=== PATIENT | female | born 1985 | race American Indian/Alaskan Native ===

== ENCOUNTER 2019-07-19 13:25 | Emergency (ER) | payer MEDICAID ==
--- NOTE | 2019-07-19 15:50 | Event Note ---
ED Screening Note ED Screening Note: [address] Davalos vaginal bleeding for three days abd cramping /P:3/A:0 no PMHx no allergies to meds This initial assessment/diagnostic orders/clinical plan/treatment(s) is/are subject to change based on patients health status, clinical progression and re- assessment by fellow clinical providers in the ED. Further treatment and workup at subsequent clinical providers discretion. Patient/guardian urged not to elope from the ED as their condition may be serious if not clinically assessed and managed. Initial orders include: labs, UA, US
[2019-07-19 16:32] LABS: Basophils # (Auto) 0.1 K/mm3 (0.0-0.1); Basophils % (Auto) 0.8 % (0.0-1.8); Eosinophils # (Auto) 0.5 K/mm3 (0.0-0.4); Eosinophils % (Auto) 5.4 % (0.0-4.3); Hemoglobin 12.8 gm/dl (10.1-14.3); Lymphocytes # (Auto) 4.1 K/mm3 (1.2-5.4); Lymphocytes % (Auto) 41.3 % (13.4-35.0); Mean Corpuscular HGB Conc 33 % (30-34); Mean Corpuscular Volume 87 fl (79-97); Monocytes # (Auto) 0.5 K/mm3 (0.0-0.8); Monocytes % (Auto) 5.5 % (0.0-7.3); Platelet Count 320 K/mm3 (140-440); Red Cell Distribution Width 13.8 % (13.2-15.2)
[2019-07-19 17:09] LABS: Bilirubin,Urine NEG (Negative); Blood,Urine LG (Negative); Color,Urine Yellow (Yellow); Mucus,Urine FEW /HPF; Protein,Urine <15 mg/dL mg/dL (Negative); Urobilinogen,Urine < 2.0 mg/dL (<2.0)
--- NOTE | 2019-07-19 17:21 | Ultrasound Report ---
US OB transvaginal, US OB <= 14 weeks fetus INDICATION / CLINICAL INFORMATION: 7 weeks preg, abd pain, bleeding. COMPARISON: None available. FINDINGS: Transabdominal and transvaginal imaging was performed. Transabdominal imaging is limited due to incomplete bladder distention. On transvaginal imaging, there is no endometrial fluid collection which may be a gestational sac. Thi s measures approximately 6 mm (5 weeks, 2 days). No yolk sac or pole is seen. Right ovary is unremarkable. There is a 2.5 cm left ovarian cyst. No adnexal lesions. No free fluid. IMPRESSION: 1. Anechoic collection within the endometrial cavity could be a very early gestational sac. This marquita ures 5 weeks, 2 days. No yolk sac or pole is seen. Correlation with serial beta hCG levels and short-term sonographic follow-up is recommended. 2. 2.5 cm left ovarian cyst. No adnexal lesions. No free fluid. Signer Name: Joshua Chen MD Signed: 07/19/2019 5:17 PM Workstation Name: [id number]
--- NOTE | 2019-07-19 21:55 | Emergency Department Report ---
ED HPI - General Chief complaint: Vaginal Bleeding Stated complaint: VAG BLEEDING/12 WKS PREG Time Seen by Provider: 07/19/19 15:49 Source: patient Mode of arrival: Ambulatory Limitations: No Limitations - History of Present Illness Initial comments: This is a 33-year-old female nontoxic, well nourished in appearance, no acute signs of distress presents to the ED with c/o of vaginal bleeding and pelvic cramping x1 day. Patient stated she is currently about 7 weeks . Patient denies any abdominal pain. Patient denies any vaginal discharge or foul odor. Patient denies any nausea, vomiting, chest pain, shortness of breathe, fever, chills, headache, stiff neck, numbness, tingling. Patient denies any urinary symptoms. Patient denies any allergies or PMH. MD Complaint: vaginal bleeding, other (pelvic pain) -: This morning Location: pelvis Radiation: none Severity: mild Severity scale (0 -10): 3 Quality: cramping Consistency: constant Improves with: none Worsens with: none Associated symptoms: vaginal bleeding. denies: nausea/vomiting, vaginal d ischarge, abdominal pain, dysuria, headache, vision changes, malaise, dysparuenia, rash, seizure, shortness of breath, syncope, weakness :: Yes Number of weeks : 7 - Related Data Home Medications Medication Instructions Recorded Confirmed Last Taken Pnv95/Ferrous Fumarate/FA 1 tab PO DAILY 07/09/13 11/29/15 11/29/15 [ Vitamins] Previous Rx's Medication Instructions Recorded Last Taken Type Vit/Iron Fum/Folic AC 1 each PO QDAY #90 tablet 10/25/14 11/29/15 Rx [ Vitamin Tablet] Promethazine [Phenergan TAB] 1 tab PO Q6HR PRN #16 tab 11/30/15 Unknown Rx Allergies Allergy/AdvReac Type Severity Reaction Status Date / Time No Known Allergies Allergy Verified 04/05/15 11:39 ED Review of Systems ROS: Stated complaint: VAG BLEEDING/12 WKS PREG Other details as noted in HPI Constitutional: denies: chills, fever Eyes: denies: eye pain, eye discharge, vision change ENT: denies: ear pain, throat pain Respiratory: denies: cough, shortness of breath, wheezing Cardiovascular: denies: chest pain, palpitations Endocrine: no symptoms reported Gastrointestinal: denies: abdominal pain, nausea, diarrhea Genitourinary: abnormal menses. denies: urgency, dysuria, discharge Musculoskeletal: denies: back pain, joint swelling, arthralgia Skin: denies: rash, lesions Neurological: denies: headache, weakness, paresthesias Psychiatric: denies: anxiety, depression Hematological/Lymphatic: denies: easy bleeding, easy bruising ED Past Medical Hx - Past Medical History Previous Medical History?: No Hx Hypertension: No Hx Congestive Heart Failure: No Hx Diabetes: No Hx Deep Vein Thrombosis: No Hx Renal Disease: No Hx Sickle Cell Disease: No Hx Seizures: No Hx Asthma: No Hx COPD: No Hx HIV: No - Surgical History Past Surgical History?: No - Social History Smoking Status: Never Smoker Substance Use Type: None - Medications Home Medications: Home Medications Medication Instructions Recorded Confirmed Last Taken Type Pnv95/Ferrous Fumarate/FA 1 tab PO DAILY 07/09/13 11/29/15 11/29/15 History [ Vitamins] Vit/Iron Fum/Folic AC 1 each PO QDAY #90 tablet 10/25/14 11/29/15 11/29/15 Rx [ Vitamin Tablet] Promethazine [Phenergan TAB] 1 tab PO Q6HR PRN #16 tab 11/30/15 Unknown Rx ED Physical Exam - General Limitations: No Limitations General appearance: alert, in no apparent distress - Head Head exam: Present: atraumatic, normocephalic - Neck Neck exam: Present: normal inspection, full ROM. Absent: tenderness, meningismus, lymphadenopathy - Respiratory Respiratory exam: Present: normal lung sounds bilaterally. Absent: respiratory distress, wheezes, rales, rhonchi, stridor, chest wall tenderness, accessory muscle use, decreased breath sounds, prolonged expiratory - Cardiovascular Cardiovascular Exam: Present: regular rate, normal rhythm, normal heart sounds. Absent: bradycardia, tachycardia, irregular rhythm, systolic murmur, diastolic murmur, rubs, gallop - GI/Abdominal GI/Abdominal exam: Present: soft, normal bowel sounds. Absent: distended, tenderness, guarding, rebound, rigid, diminished bowel sounds - Extremities Exam Extremities exam: Present: normal inspection, full ROM - Back Exam Back exam: Present: normal inspection, full ROM. Absent: tenderness, CVA tenderness (R), CVA tenderness (L), muscle spasm, paraspinal tenderness, vertebral tenderness, rash noted - Neurological Exam Neurological exam: Present: alert, oriented X3, normal gait - Psychiatric Psychiatric exam: Present: normal affect, normal mood - Skin Skin exam: Present: warm, dry, intact, normal color. Absent: rash ED Course Vital Signs 07/19/19 15:48 Temperature 98.2 F Pulse Rate 79 Respiratory 15 Rate Blood Pressure 114/61 O2 Sat by Pulse 97 Oximetry - Reevaluation(s) Reevaluation #1: 07/19/19 21:54 Patient is speaking in full sentences with no signs of distress noted. ED Medical Decision Making - Lab Data Result diagrams: 07/19/19 15:59 - Medical Decision Making This is a 33-year-old female presents with threatened miscarriage. Patient is stable and was examined by me. Normal abdominal exam. US OB obtained and dictated by the radiologist. Ua obtained. Quantative serum test obtained. Patient notified of the US report with no questions noted by the patient. Patient was instructed f/u with HOUSE MANAGER in 3-5 days. RH factor positive. Labs within normal limits. Patient was given strict precautions and education on ectopic . At time of discharge, the patient does not seem toxic or ill in appearance. No acute signs of distress noted. Patient agrees to discharge treatment plan of care. No further questions noted by the patient. Critical care attestation.: If time is entered above; I have spent that time in minutes in the direct care of this critically ill patient, excluding procedure time. ED Disposition Clinical Impression: Threatened miscarriage Disposition: DC-01 TO HOME OR SELFCARE Is pt being admited?: No Does the pt Need Aspirin: No Condition: Stable Instructions: Threatened Miscarriage (ED) Additional Instructions: Follow-up with a HOUSE MANAGER doctor in 3-5 days or if symptoms worsen and continue return to emergency room as soon as possible. Referrals: PRIMARY CARE, [Primary Care Provider] - 3-5 Days GALEN STEVENSON MD [Staff Physician] - 3-5 Days [facility] [Outside] - 3-5 Days [facility] [Provider Group] - 3-5 Days Forms: Work/School Release Form(ED)
[2019-07-19 22:09] VITALS: BP 125/70
== END 2019-07-19 22:10 | disposition home or self-care (01) ==
LOC: ED 13:25
DX: O20.0 Threatened abortion (principal); Z79.899 Other long term (current) drug therapy; Z3A.12 12 weeks gestation of pregnancy
CPT/HCPCS: 36415; 76801; 76817; 81001; 84702; 85025; 86900; 86901; 87086

== ENCOUNTER 2021-03-17 15:47 | Outpatient (CLI) | payer MEDICAID ==
[2021-03-17] MEDS ORDERED: LACTATED RINGERS 1,000 ML IV ONE (16:01)
[2021-03-17 17:35] LABS: Bacteria,Urine 1+ /HPF (Negative); Bilirubin,Urine NEG (Negative); Blood,Urine NEG (Negative); Color,Urine Yellow (Yellow); Mucus,Urine 2+ /HPF; Urobilinogen,Urine < 2.0 mg/dL (<2.0)
--- NOTE | 2021-03-17 17:42 | Ultrasound Report ---
ULTRASOUND OBSTETRIC LIMITED INDICATION / CLINICAL INFORMATION: Decreased motion.. Abdominal pain Clinical Gestational Age (GA) in weeks, days: 26 weeks 0 days TECHNIQUE: Transabdominal. COMPARISON: None available. FINDINGS: HEART RATE (beats per minute): 150 AMNIOTIC FLUID INDEX (cm) = 14.6 (normal = 7-24 cm) PRESENTATION: Cephalic. ADDITIONAL FINDINGS: Placenta is located anteriorly, grade 1, without previa. Additionally, there is a 2 cm subserosal fibroid noted along the anterior aspect of the uterus. IMPRESSION: 1. Single viable IUP. Signer Name: Desiree Soliz MD Signed: 03/17/2021 5:38 PM Workstation Name: [id number]
[2021-03-17] MEDS ORDERED: ACETAMINOPHEN 500 MG TAB PO ONE (18:54)
[2021-03-17 19:09] VITALS: BP 112/57
[2021-03-17] MEDS ORDERED: TERBUTALINE 1 MG/1 ML INJ SUB-Q ONE ×2 (19:35→21:06)
--- NOTE | 2021-03-17 19:40 | Event Note ---
Date: 03/17/21 pt examined after 1 liter IVF hydration and PO Tylenol, she continues to complain of cramping pain low in her belly approx every 10 minutes. no abd tenderness or fever. pt denies LOF or vag bleeding. SVE per RN closed/thick/high + yeast like discharge. diflucan ordered for yeast and will give brethine series. RN informed of new orders and plan. all questions addressed.
[2021-03-17] MEDS ORDERED: FLUCONAZOLE 100 MG TAB PO ONE (20:00)
[2021-03-17] MEDS ORDERED: TERBUTALINE 1 MG/1 ML INJ IVP ONE (21:06)
== END 2021-03-17 21:45 | disposition home or self-care (01) ==
LOC: TRG 15:47 → APU 15:48 → TRG 21:45
PROVIDERS: ATTEND Obstetrics & Gynecology
DX: O36.8120 Decreased fetal movements, second trimester, not applicable or unspecified (principal); O62.9 Abnormality of forces of labor, unspecified; Z3A.26 26 weeks gestation of pregnancy; Z79.899 Other long term (current) drug therapy
CPT/HCPCS: 59025; 76815; 81001; 82962; 96360; 96372; J3105; J7120